=== PATIENT | female | born 1950 | race African-American/Black ===

== ENCOUNTER 2019-01-22 09:33 | Outpatient (CLI) | payer MEDICARE ==
--- NOTE | 2019-01-22 11:17 | RAD ---
RIGHT WRIST 3 VIEWS: Date: 01/22/19 HISTORY: Wrist pain status post fall. 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 There are arthritic changes of the firs t carpometacarpal joint space and triscaphe joint. There are no signs of fracture or dislocation. IMPRESSION: No evidence of fracture. 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 POS: TPC
== END 2019-01-22 09:34 | disposition home or self-care (01) ==
LOC: RAD-FRANK 09:33
PROVIDERS: ATTEND Nurse Practitioner Family
DX: M25.531 Pain in right wrist (principal); Q68.1 Congenital deformity of finger(s) and hand

== ENCOUNTER 2020-04-12 12:43 | Outpatient (CLI) | payer MEDICARE ==
--- NOTE | 2020-05-09 13:06 | MMO ---
Bilateral MAMMO Bilat Screen [facility]. CLINICAL HISTORY: Patient is 69 years old and is seen for screening. The patient has the following family history of breast cancer: paternal aunt. The patient has no personal history of cancer. VIEWS: The views performed were: bilateral craniocaudal with tomosynthesis and bilateral mediolateral oblique with tomosynthesis. This study has been interpreted with the assistance of computer-aided detection. MAMMOGRAM FINDINGS: There are scattered fibroglandular densities. Finding 1: There are amorphous or indistinct calcifications with grouped or clustered distribution seen in the upper-outer region of the right breast. Finding 2: There is a focal asymmetry measuring 7 x 11 mm with microlobulated margins seen in the upper-inner region of the right breast. Finding 3: There is a focal asymmetry measuring 5 millimeters with microlobulated margins seen in the left breast at 9 o'clock. IMPRESSION: FINDING 1: CALCIFICATIONS IN THE RIGHT BREAST REQUIRE ADDITIONAL EVALUATION. ADDITIONAL PROJECTIONS (RIGHT CRANIOCAUDAL SPOT COMPRESSION MAGNIFICATION; RIGHT MEDIOLATERAL; AND RIGHT MEDIOLATERAL SPOT COMPRESSION MAGNIFICATION) ARE RECOMMENDED. FINDING 2: FOCAL ASYMMETRY IN THE RIGHT BREAST REQUIRES ADDITIONAL EVALUATION. ADDITIONAL PROJECTIONS (RIGHT CRANIOCAUDAL SPOT COMPRESSION; RIGHT MEDIOLATERAL OBLIQUE SPOT COMPRESSION; AND RIGHT MEDIOLATERAL) ARE RECOMMENDED. AN ULTRASOUND EXAM IS RECOMMENDED IF NEEDED. ADDITIONAL IMAGING. FINDING 3: FOCAL ASYMMETRY IN THE LEFT BREAST REQUIRES ADDITIONAL EVALUATION. ADDITIONAL PROJECTIONS (LEFT CRANIOCAUDAL SPOT COMPRESSION; LEFT MEDIOLATERAL OBLIQUE SPOT COMPRESSION; AND LEFT MEDIOLATERAL) ARE RECOMMENDED. AN ULTRASOUND EXAM IS RECOMMENDED IF NEEDED. ADDITIONAL IMAGING. THE RESULTS OF THIS EXAM WERE SENT TO THE PATIENT. ACR BI-RADS Category 0 - Incomplete: Need additional imaging evaluation. [facility] will notify the patient of the need for additional imaging services. MAMMOGRAPHY NOTE: 1. A negative mammogram report should not delay a biopsy if a dominant of clinically suspicious mass is present. 2. Approximately 10% to 15% of breast cancers are not detected by mammography. 3. Adenosis and dense breasts may obscure an underlying neoplasm. Reported by: MARSHA JURADO MD Electonically Signed: [id number]
== END 2020-04-12 12:44 | disposition home or self-care (01) ==
LOC: BICMAMMO 12:43
PROVIDERS: ATTEND Nurse Practitioner Family
DX: Z12.31 Encounter for screening mammogram for malignant neoplasm of breast (principal)
CPT/HCPCS: 77063; 77067

== ENCOUNTER 2020-05-16 08:48 | Outpatient (CLI) | payer MEDICARE ==
--- NOTE | 2020-05-16 09:12 | MMO ---
Right Breast MAMMO Unilat Diag [facility]DI RT+ODESSA. CLINICAL HISTORY: Patient is 69 years old and is seen for diagnostic exam. The patient has the following family history of breast cancer: paternal aunt. The patient has no personal history of cancer. VIEWS: The views performed were: right craniocaudal spot compression magnification; right mediolateral spot compression magnification; and right mediolateral with tomosynthesis. FILMS COMPARED: The present examination has been compared to prior imaging studies performed at [facility] on 04/12/2020, and at [facility] on 05/12/2015 and 06/06/2016. This study has been interpreted with the assistance of computer-aided detection. MAMMOGRAM FINDINGS: There are scattered fibroglandular densities. The calcs in the right upper outer breast appear indeterminate and should be biopsied. IMPRESSION: FINDING IN THE RIGHT BREAST IS SUSPICIOUS. A STEREOTACTIC BREAST BIOPSY IS RECOMMENDED. THE RESULTS OF THIS EXAM WERE SENT TO THE PATIENT. ACR BI-RADS Category 4 - Suspicious abnormality - biopsy should be considered d/w pt in person at 9:10 am MAMMOGRAPHY NOTE: 1. A negative mammogram report should not delay a biopsy if a dominant of clinically suspicious mass is present. 2. Approximately 10% to 15% of breast cancers are not detected by mammography. 3. Adenosis and dense breasts may obscure an underlying neoplasm. Reported by: MIGDALIA AMIN MD Electonically Signed: [id number]
== END 2020-05-16 08:49 | disposition home or self-care (01) ==
LOC: BICMAMMO 08:48
PROVIDERS: ATTEND Nurse Practitioner Family
DX: R41.3 Other amnesia (principal); I67.82 Cerebral ischemia
CPT/HCPCS: 77065; G0279

== ENCOUNTER → 2020-05-26 | Day surgery (SDC) | payer MEDICARE ==
--- NOTE | 2020-05-26 08:54 | MMO ---
Stereotactic guided biopsy right breast microcalcifications Surgical specimen mammography Diagnostic right mammogram HISTORY: Abnormal mammogram. Microcalcifications right breast. FINDINGS: After explaining the procedure and answering all questions, the microcalcification cluster at the lateral aspect of the right breast was again visualized. Sterile technique, buffered local anesthesia, stereotactic guidance, and a lateral approach were used to carefully advance a 10-gauge vacuum-assisted biopsy needle into the microcalcification cluster. Position confirmed with stereotactic imaging. A total of 6 specimens were obtained. Mammographic evaluation of the surgical specimen shows the microcalcification cluster in the tissue. Localization clip was placed in the biopsy bed under stereotactic guidance. Needle was removed and hemostasis obtained using direct pressure. Patient tolerated the procedure well and was eventually dismissed in good condition. Postprocedure mammogram shows scattered fibroglandular densities. Localization clip is now present at the deep lateral aspect of the right breast where microcalcifications have been removed. Small pocket of gas is noted deep within the medial aspect of the right breast. IMPRESSION : Technically successful stereotactic guided biopsy right breast microcalcifications. Pathology is pend ing.
== END ==
LOC: MAMMO 07:47
PROVIDERS: ATTEND Nurse Practitioner Family
PROC: 0H9T3ZX Drainage of Right Breast, Percutaneous Approach, Diagnostic (ICD-10-PCS; principal; 2020-05-26)
DX: R92.0 Mammographic microcalcification found on diagnostic imaging of breast (principal)
CPT/HCPCS: 19081; 76098; 88305

== ENCOUNTER 2022-01-24 10:47 | Outpatient (CLI) | payer OTHER | END 2022-01-24 10:48 | disposition home or self-care (01) | LOC: RAD-FRANK 10:47 | PROVIDERS: ATTEND Nurse Practitioner Family | DX: M25.551 Pain in right hip (principal) ==

== ENCOUNTER 2022-01-30 10:04 | Outpatient (CLI) | payer OTHER | END 2022-01-30 10:05 | disposition home or self-care (01) | LOC: BICMAMMO 10:04 | PROVIDERS: ATTEND Nurse Practitioner Family | DX: Z12.31 Encounter for screening mammogram for malignant neoplasm of breast (principal); Z91.89 Other specified personal risk factors, not elsewhere classified; Z80.3 Family history of malignant neoplasm of breast | CPT/HCPCS: 77063; 77067 ==

== ENCOUNTER 2022-03-01 11:02 | Outpatient (CLI) | payer OTHER | END 2022-03-01 11:03 | disposition home or self-care (01) | LOC: RAD-FRANK 11:02 | PROVIDERS: ATTEND Nurse Practitioner Family | DX: M89.8X1 Other specified disorders of bone, shoulder (principal) ==

== ENCOUNTER 2022-12-10 06:59 | Outpatient (CLI) | payer OTHER | END 2022-12-10 07:00 | disposition home or self-care (01) | LOC: BICCT 06:59 | PROVIDERS: ATTEND Nurse Practitioner Family | DX: I69.322 Dysarthria following cerebral infarction (principal); R53.1 Weakness; I10 Essential (primary) hypertension | CPT/HCPCS: 70450 ==

== ENCOUNTER 2023-02-07 10:07 | Outpatient (CLI) | payer OTHER | END 2023-02-07 10:08 | disposition home or self-care (01) | LOC: BICMAMMO 10:07 | PROVIDERS: ATTEND Nurse Practitioner Family | DX: Z12.31 Encounter for screening mammogram for malignant neoplasm of breast (principal); Z80.3 Family history of malignant neoplasm of breast; Z91.89 Other specified personal risk factors, not elsewhere classified | CPT/HCPCS: 77063; 77067 ==